=== PATIENT | male | born 1995 | race Caucasian/White ===

== ENCOUNTER 2017-04-08 03:58 | Emergency (ER) | payer OTHER ==
[~2017-04-08] VITALS: Ht 162.6 cm; Wt 72.0 kg
[~2017-04-08 03:58] MED LIST: PROP20TA3 PO
[2017-04-08 04:01] VITALS: BP 140/81; PULSE 102; RESP 15; TEMP 97.7; O2SAT 100
[2017-04-08] MEDS ORDERED: PROP10TA6 PO (04:11)
--- NOTE | 2017-04-08 05:26 | PD ---
HPI Chief Complaint: Syncope/Near-Syncope Time Seen by Provider: 05:13 Travel History International Travel<30 days: No Contact w/Intl Traveler<30days: No Traveled to known affect area: No History of Present Illness HPI 21-year-old male complains of headache, syncope. Patient states that he woke up this morning feeling sweating and palpitation. Patient was standing at the counter and then had a syncopal episode. Patient stated he fell and hit the back of his head. Patient states that he had a short moment of loss of consciousness. Patient complained headache in the back the head. Patient denies any visual change. Patient denies any neck pain. Patient denies any chest pain or shortness of breath. Patient denies abdominal pain. Patient denies any focal weakness or numbness of extremity. Patient denies any problem with memory. Patient denies any nausea vomiting. Patient has history of migraine has been taking propranolol 10 the ground twice a day. Patient states that he forgot to take the medication last night. Patient denies any history of syncope in the past. Patient denies any history of arrhythmia in the past. PFSH Past Medical History Autoimmune Disease: No Cardiovascular Problems: No Diminished Hearing: No Genitourinary: No Musculoskeletal: No Neurologic: No Psychiatric: No Respiratory: No Immunizations Current: Yes Migraines: Yes Tetanus Vaccination: < 5 Years Influenza Vaccination: Yes Past Surgical History Genitourinary Surgery: Yes (UNDESCENDED TESTICAL) Pacemaker: No Social History Alcohol Use: No Tobacco Use: No Substance Use: No Allergies-Medications (Allergen,Severity, Reaction): Coded Allergies: No Known Allergies (Unverified , 10/09/13) Reported Meds & Prescriptions Reported Meds & Active Scripts Active Reported Propranolol (Propranolol HCl) 10 Mg Tab 10 Mg PO Q12HR Review of Systems General / Constitutional: No: Fever Eyes: No: Visual changes HENT: No: Headaches Cardiovascular: Positive: Palpitations, Tachycardia, No: Chest Pain or Discomfort Respiratory: No: Shortness of Breath Gastrointestinal: No: Abdominal Pain Genitourinary: No: Dysuria Musculoskeletal: No: Pain Skin: No Rash Neurologic: Positive: Syncope, No: Weakness Psychiatric: No: Depression Endocrine: No: Polydipsia Hematologic/Lymphatic: No: Easy Bruising Physical Exam Narrative GENERAL: Well-nourished, well-developed patient. SKIN: Focused skin assessment warm/dry. HEAD: Normocephalic. EYES: No scleral icterus. No injection or drainage. Pupils 3 mm equal reactive. NECK: Supple, trachea midline. No JVD or lymphadenopathy. CARDIOVASCULAR: Regular rate and rhythm without murmurs, gallops, or rubs. RESPIRATORY: Breath sounds equal bilaterally. No accessory muscle use. GASTROINTESTINAL: Abdomen soft, non-tender, nondistended. MUSCULOSKELETAL: No cyanosis, or edema. BACK: Nontender without obvious deformity. No CVA tenderness. Neurologic exam: Patient's awake and alert oriented 3. No obvious focal neurological deficit. Data Data Last Documented VS Vital Signs Date Time Temp Pulse Resp B/P (MAP) Pulse Ox O2 Delivery O2 Flow Rate FiO2 04/08/17 04:01 97.7 102 15 140/81 (100) 100 Room Air Orders Orders Electrocardiogram (04/08/17 05:18) Complete Blood Count With Diff (04/08/17 05:18) Basic Metabolic Panel (Bmp) (04/08/17 05:18) Troponin I (04/08/17 05:18) Thyroid Stimulating Hormone (04/08/17 05:18) Ct Brain W/O Iv Contrast(Rout) (04/08/17 05:18) Iv Access Insert/Monitor (04/08/17 05:18) Ecg Monitoring (04/08/17 05:18) Oximetry (04/08/17 05:18) Labs Laboratory Tests Test 04/08/17 05:30 White Blood Count 8.9 TH/MM3 Red Blood Count 5.35 MIL/MM3 Hemoglobin 17.5 GM/DL Hematocrit 50.5 % Mean Corpuscular Volume 94.4 FL Mean Corpuscular Hemoglobin 32.7 PG Mean Corpuscular Hemoglobin Concent 34.7 % Red Cell Distribution Width 12.6 % Platelet Count 266 TH/MM3 Mean Platelet Volume 7.5 FL Neutrophils (%) (Auto) 74.4 % Lymphocytes (%) (Auto) 17.2 % Monocytes (%) (Auto) 7.2 % Eosinophils (%) (Auto) 0.9 % Basophils (%) (Auto) 0.3 % Neutrophils # (Auto) 6.6 TH/MM3 Lymphocytes # (Auto) 1.5 TH/MM3 Monocytes # (Auto) 0.6 TH/MM3 Eosinophils # (Auto) 0.1 TH/MM3 Basophils # (Auto) 0.0 TH/MM3 CBC Comment DIFF FINAL Differential Comment Blood Urea Nitrogen 18 MG/DL Creatinine 1.05 MG/DL Random Glucose 103 MG/DL Calcium Level 9.5 MG/DL Sodium Level 141 MEQ/L Potassium Level 3.7 MEQ/L Chloride Level 103 MEQ/L Carbon Dioxide Level 28.0 MEQ/L Anion Gap 10 MEQ/L Estimat Glomerular Filtration Rate 89 ML/MIN Troponin I LESS THAN 0.02 NG/ML Thyroid Stimulating Hormone 3rd Gen 2.540 uIU/ML MDM Medical Decision Making Medical Screen Exam Complete: Yes Emergency Medical Condition: Yes Interpretation(s) Last Impressions Head CT 04/08/17 0518 Signed Impressions: Service Date/Time: Saturday, April 08, 2017 06:07 - CONCLUSION: Normal examination. Yan Khoury MD 6:55 AM. CBC within normal limit. BMP within normal limit. Cardiac enzymes are normal. Differential Diagnosis Differential diagnosis including SVT, V. tach, PACs, PVCs. Narrative Course 21-year-old male with palpitation, tachycardia and syncope. Diagnosis Primary Impression: Syncope Qualified Codes: R55 - Syncope and collapse Additional Impressions: Cardiac arrhythmia Qualified Codes: I49.9 - Cardiac arrhythmia, unspecified Closed head injury Qualified Codes: S09.90XA - Unspecified injury of head, initial encounter Patient Instructions: General Instructions Additional Instructions: Continue with atenolol. Follow-up with machinist first class. Return immediately if any worse. Head trauma instructions given. Med/Other Pt SpecificInfo: No Change to Meds Disposition: 01 DISCHARGE HOME Condition: Stable Rowdy Mccurdy MD Apr 08, 2017 05:26
[2017-04-08 06:02] LABS: AUTOMATED NEUTROPHIL # 6.6 TH/MM3 (1.8-7.7); BASOPHIL % 0.3 % (0.0-2.0); EOSINOPHIL # 0.1 TH/MM3 (0-0.4); EOSINOPHIL % 0.9 % (0.0-4.0); HEMATOCRIT 50.5 % (39.0-51.0); HEMO FLAGS DIFF FINAL; LYMPH % 17.2 % (9.0-44.0); LYMPHOCYTE # 1.5 TH/MM3 (1.0-4.8); MEAN CELL VOLUME 94.4 FL (80.0-100.0); MEAN CORPUSCULAR HEMOGLOBIN 32.7 PG (27.0-34.0); MEAN CORPUSCULAR HGB CONC 34.7 % (32.0-36.0); MONO % 7.2 % (0.0-8.0); NEUT % 74.4 % (16.0-70.0); PLATELET COUNT 266 TH/MM3 (150-450); RED BLOOD COUNT 5.35 MIL/MM3 (4.50-5.90); RED CELL DISTRIBUTION WIDTH 12.6 % (11.6-17.2); WHITE BLOOD COUNT 8.9 TH/MM3 (4.0-11.0)
--- NOTE | 2017-04-08 06:13 | RADRPT ---
EXAM DATE/TIME: 04/08/2017 06:07 [facility] COMPARISON: No previous studies available for comparison. INDICATIONS : Syncope. Patient fell, hit posterior head. RADIATION DOSE: 31.94 CTDIvol (mGy) MEDICAL HISTORY : None SURGICAL HISTORY : None. ENCOUNTER: Initial ACUITY: 1 day PAIN SCALE: 0/10 LOCATION: cranial TECHNIQUE: Multiple contiguous axial images were obtained of the head. Using automated exposure control and adj ustment of the mA and/or kV according to patient size, radiation dose was kept as low as reasonably a chievable to obtain optimal diagnostic quality images. DICOM format image data is available electro nically for review and comparison. FINDINGS: CEREBRUM: The ventricles are normal for age. No evidence of midline shift, mass lesion, hemorrhage or acute in farction. No extra-axial fluid collections are seen. POSTERIOR FOSSA: The cerebellum and brainstem are intact. The 4th ventricle is midline. The cerebellopontine angle i s unremarkable. EXTRACRANIAL: The visualized portion of the orbits is intact. SKULL: The calvaria is intact. No evidence of skull fracture. CONCLUSION: Normal examination. Yan Khoury MD on April 08, 2017 at 6:11 Board Certified Radiologist. This report was verified electronically.
[2017-04-08 06:26] LABS: ANION GAP 10 MEQ/L (5-15); BLOOD UREA NITROGEN 18 MG/DL (7-18); CHLORIDE 103 MEQ/L (98-107); GLOMERULAR FILTRATION RATE 89 ML/MIN (>89); SODIUM (NA) 141 MEQ/L (136-145)
[2017-04-08 06:37] LABS: POTASSIUM 3.7 MEQ/L (3.5-5.1)
[2017-04-08 07:15] VITALS: BP 128/72; PULSE 99; RESP 18; TEMP 99.1; O2SAT 99
--- NOTE | 2017-04-08 15:39 | EKG ---
Date Performed: 04/08/2017 Time Performed: 06:02:25 PTAGE: 21 years EKG: SINUS TACHYCARDIA ABNORMAL RHYTHM ECG PREVIOUS TRACING : 04/08/2017 06.02 Compared to prior tracing no significant change DOCTOR: Gilma Gonzalez Interpretating Date/Time 04/08/2017 15:37:45
== END 2017-04-08 07:20 | disposition home or self-care (01) ==
LOC: NEPC 03:58
DX: I49.9 Cardiac arrhythmia, unspecified (principal); S09.90XA Unspecified injury of head, initial encounter; W19.XXXA Unspecified fall, initial encounter
CPT/HCPCS: 70450; 80048; 84443; 84484; 85025; 93005; 99284